=== PATIENT | female | born 1960 | race Caucasian/White ===

== ENCOUNTER 2021-10-23 14:20 | Outpatient (REF) | payer MEDICAID, SELFPAY ==
--- NOTE | 2021-10-23 14:00 | SKI_PTH ---
PATIENT: Delmy Villasenor LOC: [facility] U#:[id number] AGE/SX: 61/F ROOM: RE10/23/[address]: Janes Huang MD : 1960 BED: DIS: 10/23/2021 SPEC #: [id number] RECD: 10/23/21 18:11 STATUS: MONIQUE REQ #: [id number] NAOMI: 10/23/21 14:[address]: Janes Huang DEPT: Surgical Specimen RECD BY: Dawna Cobian ENTERED: 10/23/21 18:11 SP TYPE: SKI OTHR DR: Carlos Liu Tissues: 1 - SKIN BIOPSY(SHAVE/PUNCH) Procedures: SKIN LEVEL 4 Comments: [id number]
== END 2021-10-23 14:21 | disposition home or self-care (01) ==
LOC: LBN 14:20
PROVIDERS: PCP Nurse Practitioner Family; Visit Provider Otolaryngology
DX: D23.111 Other benign neoplasm of skin of right upper eyelid, including canthus (principal); B07.8 Other viral warts
CPT/HCPCS: 88305